=== PATIENT | male | born 1985 | race Caucasian/White ===

== ENCOUNTER 2020-07-17 03:09 | Emergency (ER) | payer OTHER ==
[~2020-07-17] VITALS: Ht 180.3 cm; Wt 75.0 kg
[2020-07-17] MEDS ORDERED: LIDOcaine 1% W/epiNEPHrine 1:200,000 10ml vial IJ ONE (03:35)
[2020-07-17] MEDS ORDERED: MIDAZolam 5mg/ml 2ml vial IM ONE (03:35)
[2020-07-17] MEDS ORDERED: SULF1TAB49 PO (03:53)
[2020-07-17 03:58] VITALS: BP 116/88
== END 2020-07-17 03:59 | disposition home or self-care (01) ==
LOC: ER 03:09
DX: T65.894A Toxic effect of other specified substances, undetermined, initial encounter (principal); L02.412 Cutaneous abscess of left axilla; R45.1 Restlessness and agitation; H57.13 Ocular pain, bilateral; M54.2 Cervicalgia; M54.9 Dorsalgia, unspecified; Z98.890 Other specified postprocedural states; Z79.899 Other long term (current) drug therapy
CPT/HCPCS: 10060; 96372; 99283; J2250